=== PATIENT | male | born 1995 ===

== ENCOUNTER 2019-02-11 17:20 | Emergency (ER) | payer SELFPAY ==
[~2019-02-11] VITALS: Ht 175.3 cm; Wt 70.0 kg
[2019-02-11 17:31] VITALS: BP 132/82
[2019-02-11] MEDS ORDERED: CEFTRIAXONE SODIUM 250 MG/VIAL IM ONE (19:45)
[2019-02-11] MEDS ORDERED: LIDOCAINE HCL/PF 1% 10 MG/ML 5ML VIAL IJ ONE (19:45)
[2019-02-11] MEDS ORDERED: AZITHROMYCIN 500 MG TABLET PO ONE (19:45)
[2019-02-11 20:23] LABS: CLARITY URINE CLEAR (CLEAR); COLOR URINE YELLOW (YELLOW); KETONES URINE 1+ (NEGATIVE); LEUKOCYTE ESTERASE URINE NEGATIVE (NEGATIVE); NITRITE URINE NEGATIVE (NEGATIVE); OCCULT BLOOD URINE NEGATIVE (NEGATIVE); PH URINE 5.5 (4.5-8.0); PROTEIN URINE NEGATIVE (NEGATIVE); SPECIFIC GRAVITY URINE 1.007 (1.005-1.030); UROBILINOGEN URINE 0.2 E.U./dL (0.2-1.0)
== END 2019-02-11 21:02 | disposition home or self-care (01) ==
LOC: ER 17:20
DX: N34.2 Other urethritis (principal); F17.200 Nicotine dependence, unspecified, uncomplicated
CPT/HCPCS: 81003; 96372; 99283; J0696; J3490